=== PATIENT | female | born 1935 | race Caucasian/White ===

== ENCOUNTER 2020-06-26 07:48 | Outpatient (CLI) | payer MEDICARE, SELFPAY ==
[2020-06-26 08:38] LABS: Anion Gap 10.6 (5-19); Blood Urea Nitrogen 45 mg/dL (8-23); Calcium 7.9 mg/dL (8.5-10.5); Carbon Dioxide 39 mmol/L (22-29); Chloride 96 mmol/L (98-107); Glucose 89 mg/dL (65-115); Osmolality Calculated 293 mOsm/kg (285-295); Sodium 143 mmol/L (136-145)
[2020-06-26 09:00] LABS: Potassium 2.6 mmol/L (3.5-5.1)
== END 2020-06-26 07:49 | disposition home or self-care (01) ==
LOC: LAB 07:51
PROVIDERS: Visit Provider Nurse Practitioner Family
DX: E87.6 Hypokalemia (principal)
CPT/HCPCS: 80048

== ENCOUNTER 2020-06-27 08:51 | Outpatient (CLI) | payer MEDICARE, SELFPAY ==
[2020-06-27 09:41] LABS: Anion Gap 11.9 (5-19); Blood Urea Nitrogen 46 mg/dL (8-23); Calcium 8.7 mg/dL (8.5-10.5); Carbon Dioxide 35 mmol/L (22-29); Chloride 98 mmol/L (98-107); Glucose 133 mg/dL (65-115); Osmolality Calculated 294 mOsm/kg (285-295); Sodium 142 mmol/L (136-145)
[2020-06-27 09:55] LABS: Potassium 2.9 mmol/L (3.5-5.1)
== END 2020-06-27 08:52 | disposition home or self-care (01) ==
PROVIDERS: Visit Provider Nurse Practitioner Family
DX: E87.6 Hypokalemia (principal)
CPT/HCPCS: 80048

== ENCOUNTER 2020-09-06 15:19 | Inpatient (IN) | payer MEDICARE, SELFPAY ==
[2020-09-06] VITALS (46 sets, daily range): BP systolic 152–219; BP diastolic 66–152; PULSE 74–89; RESP 22–36; TEMP 36.4; O2SAT 91–94; BMI 28.4
--- NOTE | 2020-09-06 15:26 | XRR_ITS ---
PROCEDURE INFORMATION: Exam: XR Chest, 1 View Exam date and time: 09/06/2020 3:39 PM Age: 84 years old Clinical indication: Shortness of breath; Additional info: SOB TECHNIQUE: Imaging protocol: XR of the chest Views: 1 view. COMPARISON: CR XR chest 1V portable [id number] 06/29/2020 2:04 AM FINDINGS: Lungs: Bilateral hilar vascular congestion appearing decreased since prior examination. Pleural space: Bilateral lower lobe pleural effusion. No pneumothorax. Heart/Mediastinum: Unremarkable. No cardiomegaly. Bones/joints: Unremarkable. XR/XR chest 1V portable [id number] IMPRESSION: 1. Bilateral hilar pulmonary edema decreased since prior examination. 2. Bilateral lower lobe pleural effusions similar to prior examination. 3. Otherwise negative examination
--- NOTE | 2020-09-06 15:28 | ED_ITS ---
HPI - SOB/Dyspnea General: Chief Complaint: Shortness of Breath/Dyspnea Stated Complaint: DIFF BREATHING Time Seen by Provider: 09/06/20 15:20 Source: patient and EMS Mode of arrival: EMS Limitations: no limitations History of Present Illness: HPI Narrative: 84-year-old female who tested positive for Covid 4 days ago. Patient was sent here from the longterm as she has been having increasing shortness of breath. Patient is on oxygen there for CHF. They states she has been requiring more oxygen and is currently on 6 L. She is at increased wheezing as well. She is had low-grade fevers. She denies any worsening improving factors. She has had a slight cough. Associated symptoms: Deny abdominal pain, chest pain, fever(s), nausea or vomiting Review of Systems Const: Denies: fever(s), chills, body aches or change in appetite Eyes: Denies: blurry vision or eye discomfort ENMT: Denies: throat pain or dental pain Card: Denies: chest pain Resp: Reports: dyspnea and wheezing GI: Denies: abdominal pain, nausea, vomiting or diarrhea : Denies: dysuria Musc: Denies: neck pain or back pain Skin/Breast: Denies: rash Neuro: Denies: headache(s) Psych: Denies: depression Marquez/Lymph: Denies: easy bruising All/Imm: Denies: urticaria PFSH ED PFSH: Medical History CKD (chronic kidney disease) Dyslipidemia Falls frequently HTN (hypertension) Left hip postoperative wound infection PRES (posterior reversible encephalopathy syndrome) Mental status significantly improved. Thought to be secondary to elevated blood pressure chronically. Seizure disorder On Keppra, no recurrent seizures Staph infection Surgical History H/O lumbosacral spine surgery History of hip surgery History of right hip replacement Family History Other CAD (coronary artery disease) Social History Smoking and tobacco status: never smoked Alcohol intake: never Caregiver/support person: Yes (neighbour) Lives independently: Yes Household members: none Housing: House Marital status: / Physical Exam Const: COMMON NORMALS: patient oriented x3 GENERAL APPEARANCE: in distress HENMT: COMMON NORMALS: normocephalic and atraumatic HEAD & SCALP: normocephalic and atraumatic Eye: COMMON NORMALS: Equal, round and reactive pupils present and EOMs intact bilaterally PUPIL: Yes Equal, round and reactive pupils present Neck/C-Spine: COMMON NORMALS: full ROM and supple Chest: COMMONS NORMALS: normal inspection of the chest and normal palpation of entire chest wall Resp: COMMON NORMALS: No retractions and No use of accessory muscles EFFORT & INSPECTION: Yes tachypneic AUSCULTATION: wheezes Cardio: COMMON NORMALS: regular rate, regular rhythm and No murmurs present (C ardio) RATE: regular rate RHYTHM: regular rhythm GI: COMMON NORMALS: Normal to inspection, nondistended, normoactive bowel sounds present, Soft to palpation, non-tender and no masses PALPATION: Yes Soft to palpation Extremity: COMMON NORMALS: normal to inspection and full ROM Neuro: COMMON NORMALS: patient oriented x3, moves all extremities and no focal motor deficits Psych: COMMON NORMALS: mental status grossly normal, Normal thought process present and cooperative THOUGHT PROCESS: Normal thought process present Skin: COMMON NORMALS: no rashes or lesions noted and no wounds GENERAL SKIN EXAM: no rashes or lesions noted Course Vital Signs: Vital signs: Vital Signs Temperature 97.6 F 09/06/20 15:23 Pulse Rate 89 09/06/20 16:00 Respiratory Rate 22 H 09/06/20 16:00 Blood Pressure 180/90 09/06/20 15:23 Pulse Oximetry 94 09/06/20 16:00 MDM - SOB/Dyspnea MDM Narrative: Medical decision making narrative: Patient presents here with the does have Covid. Patient also has congestive heart failure does appear to have pleural effusions likely related to her heart failure. I did give patient Lasix here. She does have slight hyperkalemia I gave her insulin and D50 as well. I spoke to Dr. Otto of the hospital service who will see patient admit to the viral ICU. Lab Data: Labs: Lab Results 09/06/20 09/06/20 09/06/20 Range/Units 15:50 15:50 15:50 WBC 6.9 (4.0-10.0) 10^3/ uL RBC 2.99 L (4.1-5.3) 10^6/u L Hgb 9.1 L (11.5-15.3) g/dL Hct 31.3 L (37.0-47.0) % MCV 104.7 H (81-99) fL MCH 30.4 (28.0-34.0) pg MCHC 29.1 L (30.0-36.0) g/dL RDW 13.5 (12.1-15.1) % Plt Count 236 (130-400) 10^3/c mm MPV 11.1 H (7.4-10.4) fL Neut % (Auto) 80.1 % Lymph % (Auto) 13.1 % Winkler % (Auto) 5.6 % Eos % (Auto) 0.3 % Baso % (Auto) 0.3 % Neut # (Auto) 5.56 (1.8-7.7) 10^3/u L Lymph # (Auto) 0.9 (0.8-4.8) 10^3/u L Winkler # (Auto) 0.4 (0.2-0.9) 10^3/u L Eos # (Auto) 0.0 (0.0-0.8) 10^3/u L Baso # (Auto) 0.0 (0.0-0.1) 10^3/u L Nucleated RBC % (a uto) 0 % Nucleated RBCs # 0.0 /100WBC PT 11.50 L (12.1-14.9) SECO NDS INR 0.82 (0.8-1.2) Fibrinogen 526 H (174-498) mg/dL Specimen Type Arterial Sample Site Radial, right ABG pH 7.39 (7.35-7.45) ABG pCO2 53.2 H (35-45) mmHg ABG pO2 71.4 L (80.0-100.0) mmH g ABG HCO3 32.5 H (22-26) mmol/L ABG Base Excess 6.3 H (-2.0-2.0) mmol/ L Maurilio Test Pos Hematocrit 37.9 (37-47) % O2 Delivery Device Nc O2 Liters/Min 4.5 % Apparel Machinery Instructor ID jmn Sodium (136-145) mmol/L Potassium (3.5-5.1) mmol/L Chloride (98-107) mmol/L Carbon Dioxide (22-29) mmol/L Anion Gap (5-19) BUN (8-23) mg/dL Creatinine (0.5-0.9) mg/dL GFR Calculation Glucose (65-115) mg/dL Calculated Osmolal ity (285-295) mOsm/k g Lactic Acid (0.5-2.2) mmol/L Calcium (8.5-10.5) mg/dL Ferritin (15-150) ng/mL Total Bilirubin (0.15-1.2) mg/dL AST (0-32) U/L ALT (0-33) U/L Alkaline Phosphata se (35-105) IU/L C-Reactive Protein (0.0-4.9) mg/L NT-Pro-B Natriuret Pep (0-450) pg/mL Total Protein (6.6-8.7) g/dL Albumin (3.5-5.2) g/dL Globulin (1.3-4.6) g/dL 09/06/20 09/06/20 Range/Units 15:50 15:50 WBC (4.0-10.0) 10^3/ uL RBC (4.1-5.3) 10^6/u L Hgb (11.5-15.3) g/dL Hct (37.0-47.0) % MCV (81-99) fL MCH (28.0-34.0) pg MCHC (30.0-36.0) g/dL RDW (12.1-15.1) % Plt Count (130-400) 10^3/c mm MPV (7.4-10.4) fL Neut % (Auto) % Lymph % (Auto) % Winkler % (Auto) % Eos % (Auto) % Baso % (Auto) % Neut # (Auto) (1.8-7.7) 10^3/u L Lymph # (Auto) (0.8-4.8) 10^3/u L Winkler # (Auto) (0.2-0.9) 10^3/u L Eos # (Auto) (0.0-0.8) 10^3/u L Baso # (Auto) (0.0-0.1) 10^3/u L Nucleated RBC % (a uto) % Nucleated RBCs # /100WBC PT (12.1-14.9) SECO NDS INR (0.8-1.2) Fibrinogen (174-498) mg/dL Specimen Type Sample Site ABG pH (7.35-7.45) ABG pCO2 (35-45) mmHg ABG pO2 (80.0-100.0) mmH g ABG HCO3 (22-26) mmol/L ABG Base Excess (-2.0-2.0) mmol/ L Maurilio Test Hematocrit (37-47) % O2 Delivery Device O2 Liters/Min % Apparel Machinery Instructor ID Sodium 143 (136-145) mmol/L Potassium 5.9 H (3.5-5.1) mmol/L Chloride 104 (98-107) mmol/L Carbon Dioxide 31 H (22-29) mmol/L Anion Gap 13.9 (5-19) BUN 43 H (8-23) mg/dL Creatinine 3.1 H (0.5-0.9) mg/dL GFR Calculation Not Reportable Glucose 105 (65-115) mg/dL Calculated Osmolal ity 307 H (285-295) mOsm/k g Lactic Acid 0.8 (0.5-2.2) mmol/L Calcium 8.1 L (8.5-10.5) mg/dL Ferritin 1343 H (15-150) ng/mL Total Bilirubin 0.2 (0.15-1.2) mg/dL AST 32 (0-32) U/L ALT 14 (0-33) U/L Alkaline Phosphata se 107 H (35-105) IU/L C-Reactive Protein 33.1 H (0.0-4.9) mg/L NT-Pro-B Natriuret Pep [id number] H (0-450) pg/mL Total Protein 5.0 L (6.6-8.7) g/dL Albumin 2.4 L (3.5-5.2) g/dL Globulin 2.6 (1.3-4.6) g/dL Imaging Data^: CXR: Radiologist's impression: [address] [place] [address] XRay Report Signed Patient: Thu George Unit #: [id number] : 1935 Age/Sex: 84 / F ADM Date: 09/06/20 Loc: ER Room/Bed: Attending Dr: Ordering Provider/Ordering MD: Lefty Lyles MD Date of Service: 09/06/20 Procedure(s): XR chest 1V portable [id number] Accession Number(s): [id number] Report Number: [id number] PROCEDURE INFORMATION: Exam: XR Chest, 1 View Exam date and time: 09/06/2020 3:39 PM Age: 84 years old Clinical indication: Shortness of breath; Additional info: SOB TECHNIQUE: Imaging protocol: XR of the chest Views: 1 view. COMPARISON: CR XR chest 1V portable [id number] 06/29/2020 2:04 AM FINDINGS: Lungs: Bilateral hilar vascular congestion appearing decreased since prior examination. Pleural space: Bilateral lower lobe pleural effusion. No pneumothorax. Heart/Mediastinum: Unremarkable. No cardiomegaly. Bones/joints: Unremarkable. XR/XR chest 1V portable [id number] IMPRESSION: 1. Bilateral hilar pulmonary edema decreased since prior examination. 2. Bilateral lower lobe pleural effusions similar to prior examination. 3. Otherwise negative examination Discharge Plan Discharge Patient Disposition: Admitted As Inpatient Clinical Impression: Pneumonia due to 2018-V CHF (congestive heart failure) Qualifiers: Heart failure type: unspecified Heart failure chronicity: acute on chronic Qualified Code(s): I50.9 - Heart failure, unspecified Condition: Stable Referrals: Jimenez Remy [Primary Care Provider] - Coding Level of Care Code ED Application Integrator for Chg Fwd Exam Comprehensive
[2020-09-06 16:03] LABS: ABG PCO2 53.2 mmHg (35-45); ABG PH Result 7.39 (7.35-7.45); Arterial Blood Gas Hematocrit 37.9 % (37-47); Base Excess ABG 6.3 mmol/L (-2.0-2.0); Blood Gas Allen Test Pos; Blood Gas LPM 4.5 %; Blood Gas Sample Site Radial, right; Blood Gas Sample Type Arterial; HCO3 ABG 32.5 mmol/L (22-26); Oxygen Device NC; PO2 ABG 71.4 mmHg (80.0-100.0)
[2020-09-06] MEDS: FUROsemide 10 mg/mL SDV 10mL 60 MG IVP (16:18)
[2020-09-06] MEDS: dexamethasone 4 mg/mL INJ 10 MG IVP (16:18)
[2020-09-06 16:19] LABS: Basophils % 0.3 %; Eosinophils % 0.3 %; Hematocrit 31.3 % (37.0-47.0); Hemoglobin 9.1 g/dL (11.5-15.3); Lymphocytes # 0.9 10^3/uL (0.8-4.8); Lymphocytes % 13.1 %; Mean Corpuscular HGB Conc 29.1 g/dL (30.0-36.0); Mean Corpuscular Hemoglobin 30.4 pg (28.0-34.0); Mean Corpuscular Volume 104.7 fL (81-99); Mean Platelet Volume 11.1 fL (7.4-10.4); Monocytes # 0.4 10^3/uL (0.2-0.9); Monocytes % 5.6 %; Neutrophils # 5.56 10^3/uL (1.8-7.7); Neutrophils % 80.1 %; Nucleated Red Blood Cells % 0 %; Platelet Count 236 10^3/cmm (130-400); Red Blood Count 2.99 10^6/uL (4.1-5.3); Red Cell Distribution Width 13.5 % (12.1-15.1); White Blood Count 6.9 10^3/uL (4.0-10.0)
[2020-09-06 16:39] LABS: Fibrinogen 526 mg/dL (174-498); INR 0.82 (0.8-1.2)
[2020-09-06 16:44] LABS: Lactic Sepsis W/Reflex 0.8 mmol/L (0.5-2.2)
[2020-09-06 16:52] LABS: Alanine Aminotransferase 14 U/L (0-33); Albumin Level 2.4 g/dL (3.5-5.2); Alkaline Phosphatase 107 IU/L (35-105); Anion Gap 13.9 (5-19); Aspartate Amino Transferase 32 U/L (0-32); Blood Urea Nitrogen 43 mg/dL (8-23); C Reactive Protein 33.1 mg/L (0.0-4.9); Calcium 8.1 mg/dL (8.5-10.5); Carbon Dioxide 31 mmol/L (22-29); Chloride 104 mmol/L (98-107); Globulin 2.6 g/dL (1.3-4.6); Glucose 105 mg/dL (65-115); NT Pro B Type Natriuretic Pept 14401 pg/mL (0-450); Osmolality Calculated 307 mOsm/kg (285-295); Potassium 5.9 mmol/L (3.5-5.1); Sodium 143 mmol/L (136-145); Total Bilirubin 0.2 mg/dL (0.15-1.2)
[2020-09-06 17:25] LABS: Ferritin 1343 ng/mL (15-150)
--- NOTE | 2020-09-06 17:43 | PM.HP ---
Providers/Chief Complaint Primary Care Provider: Jimenez Remy Chief Complaint: DIFF BREATHING History of Present Illness Thu George is a 84 year old female resident of [facility] who was diagnosed with Covid on the who presents to the hospital with increasing shortness of breath and oxygen requirement. She is very hard of hearing. No fever. Some nasal congestion, cough that is nonprodcutive. No vomiting, diarrhea. Relatively asymptomatic. Recently on Bactrim for abscess under left arm. No chest pain. She has received a dose of Lasix in the emergency department as well as a dose of dexamethasone. Also received insulin and glucose for hyperkalemia. Previous hospitalization included an extended stay for diastolic heart failure, pleural effusions, and concern of aspiration pneumonitis. Review of Systems General: Reports: ROS unobtainable due to mental status (Patient with significant confusion preventing adequate ROS.) Medications/Allergies Home Medications Medication Instructions Recorded Confirmed Last Taken Type cholecalciferol (vitamin D3) 1,250 mcg PO Q7D 05/06/20 07/13/20 Unknown History lovastatin 20 mg PO DAILY 05/06/20 07/13/20 Unknown History hydralazine 50 mg PO TID #90 tab 05/13/20 07/13/20 Unknown Rx ipratropium-albuterol 3 ml INHALATION TID #180 ml 05/13/20 07/13/20 Unknown Rx levetiracetam 500 mg PO BID #60 tab 05/13/20 07/13/20 Unknown Rx pantoprazole 40 mg PO DAILY #30 tab 05/13/20 07/13/20 Unknown Rx Milk of Magnesia 30 ml PO DAILY PRN 05/29/20 07/13/20 Unknown History Pro-Stat AWC 15 ea PO BID 05/29/20 07/13/20 Unknown History Tylenol 650 mg PO QID PRN 05/29/20 07/13/20 Unknown History budesonide 0.5 mg INHALATION BID 05/29/20 07/13/20 Unknown History loperamide 2 mg PO Q2H PRN 05/29/20 07/13/20 Unknown History albuterol sulfate 90 mcg/actuation 2 inh INHALATION Q2H PRN each 07/13/20 07/13/20 Unknown History breath activated powder inhaler furosemide 40 mg tablet 40 mg PO BID tab 07/13/20 Unknown History levothyroxine 25 mcg capsule 25 mcg PO DAILY 07/13/20 07/13/20 Unknown History potassium chloride 20 mEq 20 meq PO BID 07/13/20 07/13/20 Unknown History tablet,extended release budesonide 2 spray INTRANASAL BID 09/06/20 09/06/20 09/06/20 History carbamide peroxide [Debrox] 5 drp OTIC (EAR) DAILY 09/06/20 09/06/20 08/26/20 History carboxymethylcellulose sodium 2 drp OPHTHALMIC (EYE) BID 09/06/20 09/06/20 08/29/20 History [Refresh Tears] diclofenac sodium 2 g TOPICAL TID PRN 09/06/20 09/06/20 Unknown History hydrocodone-acetaminophen 1 tab PO Q4H PRN 09/06/20 09/06/20 09/05/20 History ipratropium-albuterol [Combivent 1 puff INHALATION TID 09/06/20 09/06/20 09/06/20 History Respimat] metolazone 2.5 mg PO DAILY 09/06/20 09/06/20 09/06/20 History metoprolol tartrate 12.5 mg PO BID 09/06/20 09/06/20 09/06/20 History polyethylene glycol 3350 [Miralax] 17 g PO DAILY PRN 09/06/20 09/06/20 Unknown History sennosides-docusate sodium 1 tab-cap PO BID PRN 09/06/20 09/06/20 Unknown History [Senna-S] sulfamethoxazole-trimethoprim 1 tab PO BID 09/06/20 09/06/20 09/06/20 History [Bactrim DS] Allergies Allergy/AdvReac Type Severity Reaction Status Date / Time No Known Allergies Allergy Verified 05/07/20 13:38 PFSH Acute PFSH: Medical History (Updated 09/06/20 @ 17:57 by Paul Otto MD) Anemia CHF (congestive heart failure) CKD (chronic kidney disease) Dyslipidemia Falls frequently HTN (hypertension) Left hip postoperative wound infection PRES (posterior reversible encephalopathy syndrome) Mental status significantly improved. Thought to be secondary to elevated blood pressure chronically. Seizure disorder On Keppra, no recurrent seizures Staph infection Surgical History H/O lumbosacral spine surgery History of hip surgery History of right hip replacement Family History Other CAD (coronary artery disease) Social History Smoking and tobacco status: never smoked Alcohol intake: never Caregiver/support person: Yes (neighbour) Lives independently: Yes Household members: none Housing: House Marital status: / Vitals/I&O/Wt Last Vital Signs Temp 97.6 F 09/06/20 15:23 Pulse 89 09/06/20 16:00 Resp 22 H 09/06/20 16:00 BP 180/90 09/06/20 15:23 Pulse Ox 94 09/06/20 16:00 Weight last 48 hrs Weight 72.91 kg Physical Exam Narrative: EXAM NARRATIVE: General exam is a well confused white female, very hard of hearing, who can only answer a few questions. She is obviously dyspneic. HEENT: Pupils equally round. Arcus senilis present. Oropharynx clear. Neck is supple no lymphadenopathy or thyromegaly Cardiovascular regular rate and rhythm, heart sounds distant Lungs bilateral expiratory wheezes, coarse breath sounds bilaterally Abdomen is soft nontender with positive bowel sounds. Obese. was deferred Extremities 1+ edema bilaterally, cap refill brisk Skin no rash Neuro no obvious focal deficits. Urinary Catheter Management^: Yap: Cath Placed During This Visit: no Reason for Continuing Indwelling Catheter: Other Data : 09/06/20 15:50 09/06/20 15:50 Micro: Microbiology 09/06/20 16:00 Blood Culture - Preliminary Blood SPECIMEN COLLECTED 09/06/20 15:50 Blood Culture - Preliminary Blood SPECIMEN COLLECTED Other data: Dimer is pending pH 7.39, PCO2 53, PO2 71 Lactate 0.8 Calcium 8.1 Ferritin 1300 LFTs mainly within normal limits Troponin not checked BNP 1400 CRP 33 Chest x-ray with bilateral effusions, bilateral infiltrates A&P Assessment and plan (1) Pneumonia due to 2019-nCoV: Dexamethasone 6 mg IV every 24 hours Remdesivir Albuterol, Atrovent per metered-dose inhaler every 4 to 6 hours as needed Supportive care with oxygen Zosyn and linezolid secondary to concern of superimposed pneumonia. This would also cover any concern of abscess in the axilla Status: Acute (2) CHF (congestive heart failure): Lasix 60 mg IV every 12 hours Status: Acute Qualifiers: Heart failure type: unspecified Heart failure chronicity: acute on chronic Qualified Code(s): I50.9 - Heart failure, unspecified (3) Anemia: Check stool Hemoccult Repeat hemoglobin tomorrow Status: Inactive Qualifiers: Anemia type: unspecified type Qualified Code(s): D64.9 - Anemia, unspecified (4) CKD (chronic kidney disease): Close follow-up of renal function Has acute kidney injury superimposed on chronic kidney disease, of which illness as well as Bactrim may have been a factor Hold any renal toxic medications Status: Acute Qualifiers: Chronic kidney disease stage: stage 4 (severe) Qualified Code(s): N18.4 - Chronic kidney disease, stage 4 (severe) (5) Hyperkalemia: Received Lasix in the emergency department Repeat BMP in 4 hours Status: Acute (6) Respiratory failure: See notations under COVID-19 pneumonia Status: Acute Qualifiers: Chronicity: unspecified Respiratory failure complication: hypoxia Qualified Code(s): J96.91 - Respiratory failure, unspecified with hypoxia Additional A&P Information Bilateral leg edema. Will check venous duplex. Recent abscess under right arm, no evidence of cellulitis currently. History of anemia. Check stool Hemoccult History of hypertension History of seizure disorder, continue Keppra Hypothyroidism, continue levothyroxine Allow natural per nursing facility records Heparin for DVT prophylaxis Check urinalysis Attestations Medical Necessity Statement*: Will need greater than 2 midnight stay secondary to COVID-19 pneumonia Time Spent in Patient Care: Greater than 35 minutes Coding Level of Care Code Acute Tube Test Technician for [facility] Fwd Diagnoses Pneumonia due to 2019-nCoV U07.1; J12.89 CHF (congestive heart failure) I50.9 Heart failure type: unspecified Heart failure chronicity: acute on chronic Anemia D64.9 Anemia type: unspecified type CKD (chronic kidney disease) N18.4 Chronic kidney disease stage: stage 4 (severe) Hyperkalemia E87.5 Respiratory failure J96.91 Chronicity: unspecified Respiratory failure complication: hypoxia
[2020-09-06 18:06] LABS: D Dimer 3.14 ug/mIFEU (0-0.59)
[2020-09-06 21:14] LABS: Glucose Point of Care 104 mg/dL (70-110)
[2020-09-06] MEDS: dextrose 50% syringe 50 mL IVP (21:32)
[2020-09-06] MEDS: hyDRALAzine 50 mg Tablet PO (21:33)
[2020-09-06] MEDS: linezolid premix 600 MG/300 ML PREMIX 300 MG IV (21:33)
[2020-09-06] MEDS: insulin regular-human 100 units/1 mL 10 UNIT IVP (21:33)
[2020-09-06] MEDS: heparin 5,000 unit/mL INJ 1 mL 5000 UNIT SUBCUT (21:51)
[2020-09-06] MEDS: hyDRALAzine 20 mg/mL INJ 1 mL IVP (21:52)
[2020-09-06] MEDS: piperacillin-tazobactam 3.375 GM in sodium chloride 0.9% (plus) 50 ML IV (22:48)
--- NOTE | 2020-09-06 23:00 | PC.NURSE ---
Notified Dr. Prasad of patient's elevated blood pressure, 219/94. Other vital signs unremarkable. Per Dr. Prasad, hold evening dose of PO hydralazine, and give hydralazine 20mg IVP x 1 now.
[2020-09-06 23:05] LABS: Bilirubin Urine Neg (Negative); Blood Urine 2+ (Negative); Glucose Urine UA 1+ (Normal); Ketones Urine 1+ (Negative); Leukocyte Esterase Urine Negative (Negative); Nitrate Urine Negative (Negative); Protein Urine 3+ (Negative); Specific Gravity, Urine 1.005 (1.005-1.030); Urine Appearance Clear (CLEAR); Urine Color Yellow (Yellow); Urobilinogen Urine Norm (Negative); pH Urine 7 (5-7)
[2020-09-06 23:06] LABS: Add Urine Culture? No; Bacteria Urine TRACE /hpf; RBC Urine 0-4 /hpf (0-2); Squamous Epithelial Cell Urine 0-4 /hpf (0-5); WBC Urine 0-4 /hpf (0-5)
[2020-09-06 23:43] LABS: Anion Gap 17.5 (5-19); Blood Urea Nitrogen 44 mg/dL (8-23); Carbon Dioxide 28 mmol/L (22-29); Chloride 103 mmol/L (98-107); Glucose 190 mg/dL (65-115); Osmolality Calculated 312 mOsm/kg (285-295); Potassium 5.5 mmol/L (3.5-5.1); Sodium 143 mmol/L (136-145)
[2020-09-07] VITALS (216 sets, daily range): BP systolic 140–203; BP diastolic 55–130; PULSE 64–99; RESP 16–43; TEMP 36.3–36.9; O2SAT 87–100
[2020-09-07] MEDS: HYDROcodone-acetaminophen 5-325 mg Tablet 1 TAB PO ×3 (00:01→22:46)
[2020-09-07] MEDS: FUROsemide 10 mg/mL SDV 10mL 60 MG IVP ×2 (04:07→17:39)
[2020-09-07] MEDS: hyDRALAzine 50 mg Tablet PO ×3 (06:15→20:21)
--- NOTE | 2020-09-07 06:22 | PC.NURSE ---
Notified Dr. Prasad of patients elevated blood pressure. Order received for hydralazine 20mg IV x 1, and to give 0900 hydralazine 50mg po now.
[2020-09-07 06:45] LABS: Glucose Point of Care 112 mg/dL (70-110)
[2020-09-07 07:00] LABS: Alanine Aminotransferase 15 U/L (0-33); Albumin Level 2.1 g/dL (3.5-5.2); Alkaline Phosphatase 97 IU/L (35-105); Anion Gap 17.7 (5-19); Aspartate Amino Transferase 29 U/L (0-32); Blood Urea Nitrogen 43 mg/dL (8-23); Calcium 8.2 mg/dL (8.5-10.5); Carbon Dioxide 28 mmol/L (22-29); Chloride 105 mmol/L (98-107); Globulin 2.6 g/dL (1.3-4.6); Glucose 114 mg/dL (65-115); Magnesium 2.2 mg/dL (1.7-2.3); Osmolality Calculated 312 mOsm/kg (285-295); Potassium 5.7 mmol/L (3.5-5.1); Sodium 145 mmol/L (136-145); Total Bilirubin 0.2 mg/dL (0.15-1.2); Total Protein 4.7 g/dL (6.6-8.7)
--- NOTE | 2020-09-07 07:00 | USCV_ITS ---
Thu George Age: 84 Gender: F : 1935 Exam Date: 09/07/2020 06:24 Ordering Phys: Paul Otto MD Technologist: Robert Naranjo Exam Location: [facility] [place] [place]_ Indication: LEG EDEMA HISTORY: Lower extremity swelling. PROCEDURES: The venous duplex Doppler examination of both lower extremities was performed in the standard fashion. The following venous structures were evaluated: common femoral vein, profunda vein, proximal portion of the greater saphenous vein, superficial femoral vein, and the popliteal vein. FINDINGS: The veins were found to be easily compressible with spontaneous blood flow. Non pulsatile flow pattern. CONCLUSIONS No evidence of DVT in the above-mentioned identifiable veins. Dr Lanny Reddy MD FACC (Electronically Signed) Final Date: 08 September 2020 08:20 S
[2020-09-07] MEDS: hyDRALAzine 20 mg/mL INJ 1 mL IVP (07:18)
[2020-09-07 07:31] LABS: Basophils % 0.2 %; Hematocrit 30.7 % (37.0-47.0); Hemoglobin 9.1 g/dL (11.5-15.3); Lymphocytes # 0.7 10^3/uL (0.8-4.8); Mean Corpuscular HGB Conc 29.6 g/dL (30.0-36.0); Mean Corpuscular Hemoglobin 30.6 pg (28.0-34.0); Mean Corpuscular Volume 103.4 fL (81-99); Mean Platelet Volume 11.4 fL (7.4-10.4); Monocytes # 0.1 10^3/uL (0.2-0.9); Monocytes % 2.2 %; Neutrophils # 3.68 10^3/uL (1.8-7.7); Neutrophils % 80.9 %; Nucleated Red Blood Cells % 0 %; Platelet Count 239 10^3/cmm (130-400); Red Blood Count 2.97 10^6/uL (4.1-5.3); Red Cell Distribution Width 13.5 % (12.1-15.1); White Blood Count 4.6 10^3/uL (4.0-10.0)
[2020-09-07] MEDS: pantoprazole DR 40 mg Tablet PO (08:16)
[2020-09-07] MEDS: atorvastatin 40 mg Tablet 20 MG PO (08:17)
[2020-09-07] MEDS: levothyroxine 25 mcg Tablet PO (08:17)
[2020-09-07] MEDS: levETIRAcetam 500 mg Tablet PO ×2 (08:17→17:11)
[2020-09-07] MEDS: metoprolol tartrate 25 mg Tablet 12.5 MG PO ×2 (08:17→17:11)
[2020-09-07] MEDS: linezolid premix 600 MG/300 ML PREMIX 300 MG IV ×2 (08:18→20:21)
[2020-09-07] MEDS: heparin 5,000 unit/mL INJ 1 mL 5000 UNIT SUBCUT ×2 (08:18→20:22)
[2020-09-07] MEDS: hyDRALAzine 20 mg/mL INJ 1 mL 10 MG IVP (09:40)
[2020-09-07] MEDS: piperacillin-tazobactam 3.375 GM in sodium chloride 0.9% (plus) 50 ML IV ×2 (10:44→22:19)
[2020-09-07] MEDS: dexamethasone 4 mg/mL INJ 6 MG IVP (11:04)
[2020-09-07] MEDS: amlodipine 10 mg Tablet PO (11:04)
[2020-09-07 11:17] LABS: Glucose Point of Care 102 mg/dL (70-110)
--- NOTE | 2020-09-07 12:06 | PM.PN ---
Subjective Subjective: Interval history: Patient is still requiring 5 L oxygen via nasal nasal cannula. Last ABG done on: 10:18: pH 7.39, PCO2: 53, PO2 71, FiO2: 30% Our plan today is to give her albumin as well as Lasix. Vitals and labs have been reviewed. Medications: Reviewed: Yes Vitals/I&O/Wt Last Vital Signs Temp 98.3 F 09/07/20 00:39 Pulse 72 09/07/20 10:55 Resp 29 H 09/07/20 10:55 BP 160/63 09/07/20 10:55 Pulse Ox 92 09/07/20 10:55 09/06/20 09/07/20 09/07/20 22:59 06:59 14:59 Intake Total 300 / 300 300 / 300 Output Total 200 / 200 150 / 150 Balance 300 / 300 -200 / 100 150 / 150 Weight last 48 hrs Weight 86.636 kg Weight 72.91 kg Physical Exam Narrative: EXAM NARRATIVE: General exam is a well confused white female, very hard of hearing, HENMT: COMMON NORMALS: normocephalic, atraumatic, hearing grossly normal bilaterally and external ears normal HEAD & SCALP: normocephalic and atraumatic EXTERNAL EAR: Yes external ears normal Eye: COMMON NORMALS: no scleral icterus GENERAL EYE: appearance normal, both eyes and all related structures Chest: COMMONS NORMALS: normal inspection of the chest and normal palpation of entire chest wall CHEST: Yes Symmetrical chest wall rise Resp: COMMON NORMALS: normal respiratory effort OTHER: Coarse bilateral breath sounds. Bilateral basal crackle, expiratory wheeze. Cardio: COMMON NORMALS: regular rate, regular rhythm, S1 normal heart sound present, S2 normal heart sound present, No gallops present (Cardio), No murmurs present (Cardio), No rub (Cardio) and Peripheral pulses 2+ throughout RATE: regular rate RHYTHM: regular rhythm HEART SOUNDS: S1 normal heart sound present and S2 normal heart sound present PERIPHERAL PULSES: Peripheral pulses 2+ throughout GI: COMMON NORMALS: Normal to inspection, nondistended, normoactive bowel sounds present, Soft to palpation, non-tender, No hepatosplenomegaly present and no masses AUSCULTATION: Yes normoactive bowel sounds PALPATION: Yes Soft to palpation and Yes No hepatosplenomegaly present RECTAL EXAM: deferred Extremity: NARRATIVE EXTREMITY EXAM: 1+ bilateral pitting edema. Urinary Catheter Management^: Yap: Cath Placed During This Visit: yes Reason for Continuing Indwelling Catheter: Accurate Measurement of Urinary Output in Critically Ill Patients Urinary Catheter Date of Insertion: 09/06/20 Data : 09/08/20 04:35 09/08/20 04:35 Micro: Microbiology 09/06/20 16:00 Blood Culture - Preliminary Blood SPECIMEN COLLECTED 09/06/20 15:50 Blood Culture - Preliminary Blood SPECIMEN COLLECTED A&P Assessment and plan (1) Respiratory failure: Acute hypoxic respiratory failure secondary to Covid pneumonia/with superimposed possible bacterial pneumonia/decompensated heart failure with preserved ejection fraction. ABG done on: : pH 7.39, PCO2: 53, PO2 71, FiO2:40% Continue:Dexamethasone 6 mg IV every 24 hours, Remdesivir Continue Zyvox and Zosyn Continue Lasix 60 mg every 12h daily. Albumin today Status: Acute Qualifiers: Chronicity: unspecified Respiratory failure complication: hypoxia Qualified Code(s): J96.91 - Respiratory failure, unspecified with hypoxia (2) Pneumonia due to 2019-nCoV: Dexamethasone 6 mg IV every 24 hours Remdesivir Albuterol, Atrovent per metered-dose inhaler every 4 to 6 hours as needed Supportive care with oxygen Zosyn and linezolid secondary to concern of superimposed pneumonia. This would also cover any concern of abscess in the axilla Status: Acute (3) CHF (congestive heart failure): Lasix 60 mg IV every 12 hours Status: Acute Qualifiers: Heart failure chronicity: acute on chronic Heart failure type: unspecified Qualified Code(s): I50.9 - Heart failure, unspecified (4) Anemia: Check stool Hemoccult Repeat hemoglobin tomorrow Status: Inactive Qualifiers: Anemia type: unspecified type Qualified Code(s): D64.9 - Anemia, unspecified (5) CKD (chronic kidney disease): Close follow-up of renal function Has acute kidney injury superimposed on chronic kidney disease, of which illness as well as Bactrim may have been a factor Hold any renal toxic medications Status: Acute Qualifiers: Chronic kidney disease stage: stage 4 (severe) Qualified Code(s): N18.4 - Chronic kidney disease, stage 4 (severe) (6) Hyperkalemia: Current serum potassium is 5.7 Will continue to monitor serum potassium. We will do an EKG: We will give her Kayexalate today. Status: Acute Additional A&P Information Bilateral leg edema. Will check venous duplex. Recent abscess under right arm, no evidence of cellulitis currently. History of anemia. Check stool Hemoccult History of hypertension History of seizure disorder, continue Keppra Hypothyroidism, continue levothyroxine Allow natural per nursing facility records Heparin for DVT prophylaxis Check urinalysis Attestations Medical Necessity Statement*: Patient needs to be in hospital for the management of Covid pneumonia. Coding Level of Care Code Acute Rabies Inspector for g Fwd Exam Detailed Diagnoses Respiratory failure J96.91 Chronicity: unspecified Respiratory failure complication: hypoxia Pneumonia due to 2019-nCoV U07.1; J12.89 CHF (congestive heart failure) I50.9 Heart failure chronicity: acute on chronic Heart failure type: unspecified Anemia D64.9 Anemia type: unspecified type CKD (chronic kidney disease) N18.4 Chronic kidney disease stage: stage 4 (severe) Hyperkalemia E87.5
[2020-09-07] MEDS: sodium polystyrene sulfonate 15 gm/60 mL Btl PO (15:01)
[2020-09-07] MEDS: metOLazone 5 MG Tablet 2.5 MG PO (15:19)
[2020-09-07 17:20] LABS: Glucose Point of Care 124 mg/dL (70-110)
[2020-09-07 20:08] LABS: Glucose Point of Care 115 mg/dL (70-110)
[2020-09-08] VITALS (16 sets, daily range): BP systolic 107–173; BP diastolic 53–91; PULSE 58–78; RESP 18–24; TEMP 36.2–36.7; O2SAT 90–94
[2020-09-08] MEDS: acetaminophen 325 mg Tablet 650 MG PO (01:27)
[2020-09-08] MEDS: FUROsemide 10 mg/mL SDV 10mL 60 MG IVP (02:39)
[2020-09-08 05:56] LABS: Basophils % 0.1 %; Hematocrit 29.7 % (37.0-47.0); Hemoglobin 8.9 g/dL (11.5-15.3); Lymphocytes # 1.2 10^3/uL (0.8-4.8); Lymphocytes % 16.9 %; Mean Corpuscular Hemoglobin 30.8 pg (28.0-34.0); Mean Corpuscular Volume 102.8 fL (81-99); Monocytes # 0.4 10^3/uL (0.2-0.9); Monocytes % 6.1 %; Neutrophils % 76.2 %; Nucleated Red Blood Cells % 0 %; Platelet Count 272 10^3/cmm (130-400); Red Blood Count 2.89 10^6/uL (4.1-5.3); Red Cell Distribution Width 13.6 % (12.1-15.1); White Blood Count 7.2 10^3/uL (4.0-10.0)
[2020-09-08] MEDS: hyDRALAzine 20 mg/mL INJ 1 mL 10 MG IVP (05:56)
[2020-09-08 06:15] LABS: Alanine Aminotransferase 15 U/L (0-33); Albumin Level 2.3 g/dL (3.5-5.2); Alkaline Phosphatase 87 IU/L (35-105); Anion Gap 16.9 (5-19); Aspartate Amino Transferase 24 U/L (0-32); Blood Urea Nitrogen 51 mg/dL (8-23); Calcium 8.1 mg/dL (8.5-10.5); Carbon Dioxide 27 mmol/L (22-29); Chloride 101 mmol/L (98-107); Globulin 2.5 g/dL (1.3-4.6); Glucose 93 mg/dL (65-115); Osmolality Calculated 303 mOsm/kg (285-295); Potassium 4.9 mmol/L (3.5-5.1); Sodium 140 mmol/L (136-145); Total Bilirubin 0.2 mg/dL (0.15-1.2); Total Protein 4.8 g/dL (6.6-8.7)
[2020-09-08 07:12] LABS: Glucose Point of Care 86 mg/dL (70-110)
--- NOTE | 2020-09-08 07:38 | PC.NURSE ---
Addendum entered by Suzanne Wade RN 09/08/20 13:04: verbal order also received to hold po metalazone for today Original Note: Pt's creatnine more elevated today to , Dr. Mccollum notified who gave verbal order for 500mL bolus NS, order received to hold dose of lasix this afternoon due at 1530
--- NOTE | 2020-09-08 08:15 | XRR_ITS ---
PROCEDURE INFORMATION: Exam: XR Right Shoulder Exam date and time: 09/08/2020 11:32 AM Age: 84 years old Clinical indication: Pain; Shoulder; Right; Additional info: Right shoulder pain, covid + TECHNIQUE: Imaging protocol: XR Right shoulder. Views: 1 view. COMPARISON: No relevant prior studies available. FINDINGS: Bones/joints: There is a small metal anchor in the right humeral head which is probably from rotator cuff repair. No fracture or other acute abnormalities are seen. Prominent degenerative changes are present with joint space narrowing sclerosis and osteophyte formation. There is superior subluxation of the humeral head consistent with chronic rotator cuff degeneration. Soft tissues: Normal. XR/XR shoulder RT 1V [id number] IMPRESSION: 1. Prior orthopedic surgery probably rotator cuff repair. 2. Prominent degenerative disease.
[2020-09-08 08:35] LABS: ABG PCO2 41.7 mmHg (35-45); ABG PH Result 7.47 (7.35-7.45); Alveolar-Arterial Oxygen Gradi 18.5 mmHg (5-10); Arterial Blood Gas Hematocrit 30.4 % (37-47); Base Excess ABG 5.8 mmol/L (-2.0-2.0); Blood Gas Allen Test Pos; Blood Gas Operator Identificat CAK; Blood Gas Sample Site Radial, right; Blood Gas Sample Type Arterial; Carboxyhemoglobin 0.9 %THgb (0.4-20.1); HCO3 ABG 30.1 mmol/L (22-26); HGB O2 Sat 91.5 % (95-100); Ionized Calcium Level - ABG 1.1 mmol/L (1.1-1.4); Oxygen Device NC; Oxygen Saturation ABG 93.4; PO2 ABG 64.2 mmHg (80.0-100.0); Potassium Level - ABG 4.6 mmol/L (3.5-5.0); Total Hemoglobin 9.9 g/dL (12-16)
[2020-09-08] MEDS: heparin 5,000 unit/mL INJ 1 mL 5000 UNIT SUBCUT ×2 (09:28→21:31)
[2020-09-08] MEDS: atorvastatin 40 mg Tablet 20 MG PO (09:28)
[2020-09-08] MEDS: sodium chloride 0.9% 500 ML IV (09:28)
[2020-09-08] MEDS: amlodipine 10 mg Tablet PO (09:28)
[2020-09-08] MEDS: levETIRAcetam 500 mg Tablet PO ×2 (09:28→17:30)
[2020-09-08] MEDS: hyDRALAzine 50 mg Tablet PO ×3 (09:28→21:30)
[2020-09-08] MEDS: metoprolol tartrate 25 mg Tablet 12.5 MG PO ×2 (09:29→17:30)
[2020-09-08] MEDS: levothyroxine 25 mcg Tablet PO (09:29)
[2020-09-08] MEDS: pantoprazole DR 40 mg Tablet PO (09:29)
[2020-09-08] MEDS: HYDROcodone-acetaminophen 5-325 mg Tablet 1 TAB PO ×2 (10:03→17:31)
[2020-09-08] MEDS: benzonatate 100 mg Capsule PO ×2 (10:03→17:30)
[2020-09-08 11:32] LABS: Glucose Point of Care 82 mg/dL (70-110)
--- NOTE | 2020-09-08 13:05 | PC.NURSE ---
upon checking iv for patency before administering NS bolus this am, iv was hard to flush. with inspection it was noted that catheter tip was kinked not patent. iv was discontinued, multiple attempts by multiple RN's were unsuccessful, ultrasound was used and also unsuccessful. Dr. Mccollum notified of this and patient not having a patent IV at this point. no new orders received. Dr. Mccollum stated he would look and see what medications he could change to po for patient and he will also look for possible placement if EJ.
[2020-09-08] MEDS: amoxicillin-clav 500-125 mg Tablet 1 TAB PO ×2 (14:35→21:30)
[2020-09-08] MEDS: linezolid 600 mg Tablet PO ×2 (14:36→21:30)
--- NOTE | 2020-09-08 16:28 | P.PN_ITS ---
Subjective Subjective: Interval history: Patient shortness of breath has improved. Though she is still requiring 5 L oxygen via nasal cannula. She was complaining of right shoulder: X-ray right shoulder was done:There is superior subluxation of the humeral head consistent with chronic rotator cuff degeneration. No fracture. Medications: Reviewed: Yes Vitals/I&O/Wt Last Vital Signs Temp 98.1 F 09/08/20 16:00 Pulse 69 09/08/20 16:00 Resp 20 H 09/08/20 16:00 BP 107/74 09/08/20 16:00 Pulse Ox 90 09/08/20 16:00 09/08/20 09/08/20 09/08/20 06:59 14:59 22:59 Intake Total 50 / 1280 120 / 120 Output Total 200 / 775 300 / 300 Balance -150 / 505 120 / 120 -300 / -180 Weight last 48 hrs Weight 87.09 kg Weight 86.636 kg Physical Exam Narrative: EXAM NARRATIVE: General exam is a well confused white female, very hard of hearing, Const: COMMON NORMALS: patient oriented x3 HENMT: COMMON NORMALS: normocephalic, atraumatic, hearing grossly normal bilaterally and external ears normal HEAD & SCALP: normocephalic and atraumatic EXTERNAL EAR: Yes external ears normal Eye: COMMON NORMALS: no scleral icterus GENERAL EYE: appearance normal, both eyes and all related structures Chest: COMMONS NORMALS: normal inspection of the chest and normal palpation of entire chest wall CHEST: Yes Symmetrical chest wall rise Resp: COMMON NORMALS: normal respiratory effort, No retractions and No use of accessory muscles EFFORT & INSPECTION: Yes symmetric chest movement OTHER: Coarse bilateral breath sounds. Bilateral basal crackle, expiratory wheeze. Cardio: COMMON NORMALS: regular rate, regular rhythm, S1 normal heart sound present, S2 normal heart sound present, No gallops present (Cardio), No murmurs present (Cardio), No rub (Cardio) and Peripheral pulses 2+ throughout RATE: regular rate RHYTHM: regular rhythm HEART SOUNDS: S1 normal heart sound present and S2 normal heart sound present PERIPHERAL PULSES: Peripheral pulses 2+ throughout GI: COMMON NORMALS: Normal to inspection, nondistended, normoactive bowel sounds present, Soft to palpation, non-tender, No hepatosplenomegaly present and no masses AUSCULTATION: Yes normoactive bowel sounds PALPATION: Yes Soft to palpation and Yes No hepatosplenomegaly present RECTAL EXAM: deferred Extremity: NARRATIVE EXTREMITY EXAM: 1+ bilateral pitting edema Neuro: COMMON NORMALS: patient oriented x3 Urinary Catheter Management^: Yap: Cath Placed During This Visit: yes Reason for Continuing Indwelling Catheter: Acute Urinary Retention or Obstruction Urinary Catheter Date of Insertion: 09/06/20 Data : 09/08/20 04:35 09/08/20 04:35 Micro: Microbiology 09/06/20 16:00 Blood Culture - Preliminary Blood NEGATIVE TO DATE 09/06/20 15:50 Blood Culture - Preliminary Blood NEGATIVE TO DATE 09/07/20 04:00 MRSA Culture - Final Nose A&P Assessment and plan (1) Respiratory failure: Acute hypoxic respiratory failure secondary to Covid pneumonia/with superimposed possible bacterial pneumonia/decompensated heart failure with preserved ejection fraction. ABG done on: : pH 7.47, PCO2: 41, PO2 :64, FiO2:35% Continue:Dexamethasone 6 mg po every 24 hours, Remdesivir was held as she lost the IV line. She has received 2 doses so far. Continue Zyvox , Zosyn could not be given, no IV access. She has been started on Augmentin p.o. daily renally dosed Lasix on hold today due to worsening kidney function. We will continue to reevaluate her. Metolazone on hold. Status: Acute Qualifiers: Chronicity: unspecified Respiratory failure complication: hypoxia Qualified Code(s): J96.91 - Respiratory failure, unspecified with hypoxia (2) Pneumonia due to 2019-nCoV: Dexamethasone 6 mg po every 24 hours Remdesivir on hold Albuterol, Atrovent per metered-dose inhaler every 4 to 6 hours as needed Supportive care with oxygen linezolid and Augmentin secondary to concern of superimposed pneumonia. This would also cover any concern of abscess in the axilla. Status: Acute (3) CHF (congestive heart failure): Lasix 60 mg IV every 12 hours currently on hold due to worsening kidney function. Status: Acute Qualifiers: Heart failure type: unspecified Heart failure chronicity: acute on chronic Qualified Code(s): I50.9 - Heart failure, unspecified (4) Anemia: Check stool Hemoccult Monitor CBC. No need for transfusion now. Status: Inactive Qualifiers: Anemia type: unspecified type Qualified Code(s): D64.9 - Anemia, unspecified (5) CKD (chronic kidney disease): Close follow-up of renal function Has acute kidney injury superimposed on chronic kidney disease, Hold any renal toxic medications Status: Acute Qualifiers: Chronic kidney disease stage: stage 4 (severe) Qualified Code(s): N18.4 - Chronic kidney disease, stage 4 (severe) (6) Hyperkalemia: Current serum potassium is 4.9 Will continue to monitor serum potassium Status: Acute (7) Right shoulder pain: 2/2 to chronic superior subluxation of the humeral head consistent with chronic rotator cuff degeneration. No fracture. PT ,Pain control Status: Acute Additional A&P Information Bilateral leg edema. venous duplex: No evidence of DVT Recent abscess under right arm, no evidence of cellulitis currently. History of anemia. Check stool Hemoccult History of hypertension History of seizure disorder, continue Keppra Hypothyroidism, continue levothyroxine Allow natural per nursing facility records Heparin for DVT prophylaxis Check urinalysis Attestations Medical Necessity Statement*: Patient is to be in hospital for management of Covid pneumonia, as well as worsening kidney function. 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
[2020-09-08 16:44] LABS: Glucose Point of Care 94 mg/dL (70-110)
[2020-09-08 20:33] LABS: Glucose Point of Care 136 mg/dL (70-110)
[2020-09-09] VITALS (65 sets, daily range): BP systolic 89–153; BP diastolic 52–99; PULSE 56–79; RESP 16–36; TEMP 36.5–36.6; O2SAT 81–100
[2020-09-09] MEDS: HYDROcodone-acetaminophen 5-325 mg Tablet 1 TAB PO (04:57)
[2020-09-09 06:45] LABS: Basophils % 0.1 %; Eosinophils % 0.3 %; Hematocrit 29.6 % (37.0-47.0); Hemoglobin 8.8 g/dL (11.5-15.3); Lymphocytes # 1.9 10^3/uL (0.8-4.8); Lymphocytes % 21.3 %; Mean Corpuscular HGB Conc 29.7 g/dL (30.0-36.0); Mean Corpuscular Hemoglobin 30.8 pg (28.0-34.0); Mean Corpuscular Volume 103.5 fL (81-99); Mean Platelet Volume 11.1 fL (7.4-10.4); Monocytes # 0.5 10^3/uL (0.2-0.9); Monocytes % 5.4 %; Neutrophils # 6.32 10^3/uL (1.8-7.7); Neutrophils % 72.3 %; Nucleated Red Blood Cells % 0 %; Platelet Count 286 10^3/cmm (130-400); Red Blood Count 2.86 10^6/uL (4.1-5.3); Red Cell Distribution Width 13.6 % (12.1-15.1); White Blood Count 8.7 10^3/uL (4.0-10.0)
[2020-09-09 07:12] LABS: Alanine Aminotransferase 17 U/L (0-33); Albumin Level 2.3 g/dL (3.5-5.2); Alkaline Phosphatase 78 IU/L (35-105); Anion Gap 16.3 (5-19); Aspartate Amino Transferase 33 U/L (0-32); Blood Urea Nitrogen 54 mg/dL (8-23); Calcium 7.7 mg/dL (8.5-10.5); Carbon Dioxide 29 mmol/L (22-29); Chloride 101 mmol/L (98-107); Globulin 2.2 g/dL (1.3-4.6); Glucose 76 mg/dL (65-115); Osmolality Calculated 308 mOsm/kg (285-295); Potassium 4.3 mmol/L (3.5-5.1); Sodium 142 mmol/L (136-145); Total Bilirubin 0.2 mg/dL (0.15-1.2); Total Protein 4.5 g/dL (6.6-8.7)
[2020-09-09] MEDS: metoprolol tartrate 25 mg Tablet 12.5 MG PO ×2 (08:48→17:28)
[2020-09-09] MEDS: atorvastatin 40 mg Tablet 20 MG PO (08:48)
[2020-09-09] MEDS: heparin 5,000 unit/mL INJ 1 mL 5000 UNIT SUBCUT ×2 (08:48→21:40)
[2020-09-09] MEDS: amlodipine 10 mg Tablet PO (08:49)
[2020-09-09] MEDS: pantoprazole DR 40 mg Tablet PO (08:49)
[2020-09-09] MEDS: levothyroxine 25 mcg Tablet PO (08:50)
[2020-09-09] MEDS: levETIRAcetam 500 mg Tablet PO ×2 (08:52→17:28)
[2020-09-09] MEDS: hyDRALAzine 50 mg Tablet PO ×3 (08:52→21:53)
[2020-09-09] MEDS: amoxicillin-clav 500-125 mg Tablet 1 TAB PO ×2 (09:08→21:54)
[2020-09-09] MEDS: linezolid 600 mg Tablet PO ×2 (09:09→21:54)
--- NOTE | 2020-09-09 09:34 | PC.NURSE ---
pt resting in bed at this time watching tv. no needs identified at this time. will continue to monitor.
--- NOTE | 2020-09-09 10:28 | PM.PN ---
Subjective Subjective: Interval history: Patient is currently saturating well on 3 L of oxygen via nasal cannula. She is complaining of right shoulder pain. BUN and creatinine has plateaued. Vitals and labs have been reviewed. Vitals/I&O/Wt Last Vital Signs Temp 97.9 F 09/09/20 07:52 Pulse 74 09/09/20 07:55 Resp 18 09/09/20 07:55 BP 126/85 09/09/20 07:52 Pulse Ox 95 09/09/20 07:55 09/08/20 09/09/20 09/09/20 22:59 06:59 14:59 Intake Total 120 / 120 Output Total 400 / 400 200 / 600 Balance -400 / -280 -200 / -480 120 / 120 Weight last 48 hrs Weight 84.731 kg Weight 87.09 kg Physical Exam Narrative: EXAM NARRATIVE: Narrative EXAM NARRATIVE: General exam is a well confused white female, very hard of hearing, Const COMMON NORMALS: patient oriented x3 HENMT COMMON NORMALS: normocephalic, atraumatic, hearing grossly normal bilaterally and external ears normal HEAD & SCALP: normocephalic and atraumatic EXTERNAL EAR: Yes external ears normal Eye COMMON NORMALS: no scleral icterus GENERAL EYE: appearance normal, both eyes and all related structures Chest COMMONS NORMALS: normal inspection of the chest and normal palpation of entire chest wall CHEST: Yes Symmetrical chest wall rise Resp COMMON NORMALS: normal respiratory effort, No retractions and No use of accessory muscles EFFORT & INSPECTION: Yes symmetric chest movement OTHER: Coarse bilateral breath sounds. Bilateral basal crackle, expiratory wheeze. Cardio COMMON NORMALS: regular rate, regular rhythm, S1 normal heart sound present, S2 normal heart sound present, No gallops present (Cardio), No murmurs present (Cardio), No rub (Cardio) and Peripheral pulses 2+ throughout RATE: regular rate RHYTHM: regular rhythm HEART SOUNDS: S1 normal heart sound present and S2 normal heart sound present PERIPHERAL PULSES: Peripheral pulses 2+ throughout GI COMMON NORMALS: Normal to inspection, nondistended, normoactive bowel sounds present, Soft to palpation, non-tender, No hepatosplenomegaly present and no masses AUSCULTATION: Yes normoactive bowel sounds PALPATION: Yes Soft to palpation and Yes No hepatosplenomegaly present RECTAL EXAM: deferred Extremity NARRATIVE EXTREMITY EXAM: 1+ bilateral pitting edema Neuro COMMON NORMALS: patient oriented x3 Const: COMMON NORMALS: patient oriented x3 HENMT: COMMON NORMALS: normocephalic, atraumatic, hearing grossly normal bilaterally and external ears normal HEAD & SCALP: normocephalic and atraumatic EXTERNAL EAR: Yes external ears normal Eye: COMMON NORMALS: no scleral icterus GENERAL EYE: appearance normal, both eyes and all related structures Chest: COMMONS NORMALS: normal inspection of the chest and normal palpation of entire chest wall CHEST: Yes Symmetrical chest wall rise Resp: COMMON NORMALS: normal respiratory effort, No retractions and No use of accessory muscles EFFORT & INSPECTION: Yes symmetric chest movement OTHER: Coarse bilateral breath sounds. Bilateral basal crackle, expiratory wheeze. Cardio: COMMON NORMALS: regular rate, regular rhythm, S1 normal heart sound present, S2 normal heart sound present, No gallops present (Cardio), No murmurs present (Cardio), No rub (Cardio) and Peripheral pulses 2+ throughout RATE: regular rate RHYTHM: regular rhythm HEART SOUNDS: S1 normal heart sound present and S2 normal heart sound present PERIPHERAL PULSES: Peripheral pulses 2+ throughout GI: COMMON NORMALS: Normal to inspection, nondistended, normoactive bowel sounds present, Soft to palpation, non-tender, No hepatosplenomegaly present and no masses AUSCULTATION: Yes normoactive bowel sounds PALPATION: Yes Soft to palpation and Yes No hepatosplenomegaly present RECTAL EXAM: deferred Extremity: NARRATIVE EXTREMITY EXAM: 1+ bilateral pitting edema Neuro: COMMON NORMALS: patient oriented x3 Urinary Catheter Management^: Yap: Cath Placed During This Visit: yes Reason for Continuing Indwelling Catheter: Acute Urinary Retention or Obstruction Urinary Catheter Date of Insertion: 09/06/20 Data : 09/09/20 04:50 09/09/20 04:50 Micro: Microbiology 09/08/20 16:09 Occult Blood (FIT) - Final Stool A&P Assessment and plan (1) Respiratory failure: Acute hypoxic respiratory failure secondary to Covid pneumonia/with superimposed possible bacterial pneumonia/decompensated heart failure with preserved ejection fraction. Last ABG done on: : pH 7.47, PCO2: 41, PO2 :64, FiO2:35% Continue:Dexamethasone 6 mg po every 24 hours, Remdesivir was held as she lost the IV line. She has received 2 doses so far. Continue Zyvox , Zosyn could not be given, no IV access. She has been started on Augmentin p.o. daily renally dosed Lasix on hold today due to worsening kidney function. We will continue to reevaluate her. Metolazone on hold. Status: Acute Qualifiers: Chronicity: unspecified Respiratory failure complication: hypoxia Qualified Code(s): J96.91 - Respiratory failure, unspecified with hypoxia (2) Pneumonia due to 2019-nCoV: Dexamethasone 6 mg po every 24 hours Remdesivir on hold Albuterol, Atrovent per metered-dose inhaler every 4 to 6 hours as needed Supportive care with oxygen linezolid and Augmentin secondary to concern of superimposed pneumonia. This would also cover any concern of abscess in the axilla. Status: Acute (3) CHF (congestive heart failure): Lasix 60 mg IV every 12 hours currently on hold due to worsening kidney function. Status: Acute Qualifiers: Heart failure type: unspecified Heart failure chronicity: acute on chronic Qualified Code(s): I50.9 - Heart failure, unspecified (4) Anemia: Check stool Hemoccult Monitor CBC. No need for transfusion now. Status: Inactive Qualifiers: Anemia type: unspecified type Qualified Code(s): D64.9 - Anemia, unspecified (5) CKD (chronic kidney disease): Close follow-up of renal function Has acute kidney injury superimposed on chronic kidney disease, Hold any renal toxic medications Status: Acute Qualifiers: Chronic kidney disease stage: stage 4 (severe) Qualified Code(s): N18.4 - Chronic kidney disease, stage 4 (severe) (6) Hyperkalemia: Current serum potassium is 4.9 Will continue to monitor serum potassium Status: Acute (7) Right shoulder pain: 2/2 to chronic superior subluxation of the humeral head consistent with chronic rotator cuff degeneration. No fracture. PT ,Pain control Status: Acute Additional A&P Information Bilateral leg edema. venous duplex: No evidence of DVT Recent abscess under right arm, no evidence of cellulitis currently. History of anemia. Check stool Hemoccult History of hypertension History of seizure disorder, continue Keppra Hypothyroidism, continue levothyroxine Allow natural per nursing facility records Heparin for DVT prophylaxis Check urinalysis Attestations Medical Necessity Statement*: Patient needs to be in hospital for management of Covid pneumonia. 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
[2020-09-09 11:25] LABS: Glucose Point of Care 87 mg/dL (70-110)
[2020-09-09 11:25] LABS: Glucose Point of Care 109 mg/dL (70-110)
--- NOTE | 2020-09-09 11:54 | PC.SOCIAL ---
Pg 2 IMM Was unable to explain to pt's next of kin or person to notify [facility] via phone. No one answered. Pt is a resident of [facility].
[2020-09-09] MEDS: dexamethasone 4 mg Tablet 6 MG PO (11:58)
[2020-09-09 17:12] LABS: Glucose Point of Care 101 mg/dL (70-110)
[2020-09-10] VITALS (31 sets, daily range): BP systolic 109–161; BP diastolic 55–93; PULSE 58–75; RESP 16–28; TEMP 36.5–36.8; O2SAT 93–98
[2020-09-10] MEDS: guaiFENesin-dextromethorphan UDC 10 mL 5 ML PO (01:05)
[2020-09-10] MEDS: HYDROcodone-acetaminophen 5-325 mg Tablet 1 TAB PO ×3 (01:05→14:26)
[2020-09-10 05:43] LABS: Anion Gap 16.4 (5-19); Blood Urea Nitrogen 56 mg/dL (8-23); Calcium 7.9 mg/dL (8.5-10.5); Carbon Dioxide 28 mmol/L (22-29); Chloride 103 mmol/L (98-107); Glucose 114 mg/dL (65-115); Osmolality Calculated 312 mOsm/kg (285-295); Potassium 4.4 mmol/L (3.5-5.1); Sodium 143 mmol/L (136-145)
[2020-09-10 07:07] LABS: Glucose Point of Care 93 mg/dL (70-110)
--- NOTE | 2020-09-10 07:13 | PC.NURSE ---
Patient yelling for help. Nurse entered room. Patient disoriented. Patient states, please give that plate of food to that gentleman in the corner. He has been on the trail and is starving to . There is a fork in that drawer over there. Nurse reoriented patient to time and place. Bed alarm is on, bed in low, locked position. Nurse to continue to monitor.
[2020-09-10] MEDS: hyDRALAzine 50 mg Tablet PO ×2 (08:25→14:26)
[2020-09-10] MEDS: heparin 5,000 unit/mL INJ 1 mL 5000 UNIT SUBCUT ×2 (08:25→21:43)
[2020-09-10] MEDS: dexamethasone 4 mg Tablet 6 MG PO (08:26)
[2020-09-10] MEDS: levETIRAcetam 500 mg Tablet PO (08:27)
[2020-09-10] MEDS: levothyroxine 25 mcg Tablet PO (08:27)
[2020-09-10] MEDS: atorvastatin 40 mg Tablet 20 MG PO (08:27)
[2020-09-10] MEDS: metoprolol tartrate 25 mg Tablet 12.5 MG PO (08:29)
[2020-09-10] MEDS: pantoprazole DR 40 mg Tablet PO (08:30)
[2020-09-10] MEDS: amlodipine 10 mg Tablet PO (08:30)
[2020-09-10] MEDS: amoxicillin-clav 500-125 mg Tablet 1 TAB PO (09:49)
[2020-09-10] MEDS: linezolid 600 mg Tablet PO ×2 (09:49→23:03)
--- NOTE | 2020-09-10 10:19 | PC.NURSE ---
Patient states, I need you to either take me out back or out that way (pointing to door) so I can get things straightened out with [place] and the [employer]. I can hear them behind me. Nurse attempted to reorient patient, unsuccessful. Nurse to administer PO Abx. Patient states, I'm not taking those. Patient educated on risks of not taking medications as prescribed. Patient verbalized understanding but refused to take medicine. Nurse to continue to monitor.
--- NOTE | 2020-09-10 15:36 | PM.PN ---
Subjective Subjective: Interval history: No active complaints overnight. Patient is requiring 3 L of oxygen to maintain saturation greater than 90%. Vitals and labs have been reviewed. Medications: Reviewed: Yes Vitals/I&O/Wt Last Vital Signs Temp 97.7 F 09/10/20 07:19 Pulse 62 09/10/20 12:08 Resp 20 H 09/10/20 12:08 BP 109/66 09/10/20 12:07 Pulse Ox 95 09/10/20 07:55 09/10/20 09/10/20 09/10/20 06:59 14:59 22:59 Intake Total 75 / 655 240 / 240 Output Total 200 / 600 Balance -125 / 55 240 / 240 Weight last 48 hrs Weight 83.915 kg Weight 84.731 kg Physical Exam Const: COMMON NORMALS: patient oriented x3 HENMT: COMMON NORMALS: normocephalic, atraumatic, hearing grossly normal bilaterally and external ears normal HEAD & SCALP: normocephalic and atraumatic EXTERNAL EAR: Yes external ears normal Eye: COMMON NORMALS: no scleral icterus GENERAL EYE: appearance normal, both eyes and all related structures Chest: COMMONS NORMALS: normal inspection of the chest and normal palpation of entire chest wall CHEST: Yes Symmetrical chest wall rise Resp: COMMON NORMALS: normal respiratory effort, No retractions, No use of accessory muscles and clear to auscultation bilaterally EFFORT & INSPECTION: Yes symmetric chest movement AUSCULTATION: clear to auscultation bilaterally OTHER: Coarse bilateral breath sounds. Bilateral basal crackle, expiratory wheeze. Cardio: COMMON NORMALS: regular rate, regular rhythm, S1 normal heart sound present, S2 normal heart sound present, No gallops present (Cardio), No murmurs present (Cardio), No rub (Cardio) and Peripheral pulses 2+ throughout RATE: regular rate RHYTHM: regular rhythm HEART SOUNDS: S1 normal heart sound present and S2 normal heart sound present PERIPHERAL PULSES: Peripheral pulses 2+ throughout GI: COMMON NORMALS: Normal to inspection, nondistended, normoactive bowel sounds present, Soft to palpation, non-tender, No hepatosplenomegaly present and no masses AUSCULTATION: Yes normoactive bowel sounds PALPATION: Yes Soft to palpation and Yes No hepatosplenomegaly present RECTAL EXAM: deferred Extremity: COMMON NORMALS: no clubbing, cyanosis or edema and no pedal edema NARRATIVE EXTREMITY EXAM: 1+ bilateral pitting edema Neuro: COMMON NORMALS: patient oriented x3 Urinary Catheter Management^: Yap: Cath Placed During This Visit: yes Reason for Continuing Indwelling Catheter: Accurate Measurement of Urinary Output in Critically Ill Patients Urinary Catheter Date of Insertion: 09/06/20 Data : 09/09/20 04:50 09/10/20 04:45 A&P Assessment and plan (1) Respiratory failure: Acute hypoxic respiratory failure secondary to Covid pneumonia/with superimposed possible bacterial pneumonia/decompensated heart failure with preserved ejection fraction. Last ABG done on: : pH 7.47, PCO2: 41, PO2 :64, FiO2:35% Continue:Dexamethasone 6 mg po every 24 hours, Remdesivir was held as she lost the IV line. She has received 2 doses so far. Continue Zyvox ( monitor PC ) , Zosyn could not be given, no IV access. She has been started on Augmentin p.o. daily renally dosed Lasix and metolazone on hold today due to worsening kidney function. We will continue to reevaluate her. Status: Acute Qualifiers: Chronicity: unspecified Respiratory failure complication: hypoxia Qualified Code(s): J96.91 - Respiratory failure, unspecified with hypoxia (2) Pneumonia due to 2019-nCoV: Dexamethasone 6 mg po every 24 hours Remdesivir on hold Albuterol, Atrovent per metered-dose inhaler every 4 to 6 hours as needed Supportive care with oxygen linezolid and Augmentin secondary to concern of superimposed pneumonia. This would also cover any concern of abscess in the axilla. Status: Acute (3) CHF (congestive heart failure): Lasix 60 mg IV every 12 hours currently on hold due to worsening kidney function. Status: Acute Qualifiers: Heart failure chronicity: acute on chronic Heart failure type: unspecified Qualified Code(s): I50.9 - Heart failure, unspecified (4) Anemia: Stool Hemoccult:Negative Monitor CBC. No need for transfusion now. Status: Inactive Qualifiers: Anemia type: unspecified type Qualified Code(s): D64.9 - Anemia, unspecified (5) CKD (chronic kidney disease): Close follow-up of renal function Has acute kidney injury superimposed on chronic kidney disease, Hold any renal toxic medications Continue to hold Lasix. Status: Acute Qualifiers: Chronic kidney disease stage: stage 4 (severe) Qualified Code(s): N18.4 - Chronic kidney disease, stage 4 (severe) (6) Hyperkalemia: Resolved Current serum potassium is 4.9 Will continue to monitor serum potassium Status: Acute (7) Right shoulder pain: 2/2 to chronic superior subluxation of the humeral head consistent with chronic rotator cuff degeneration. No fracture. PT ,Pain control Status: Acute Additional A&P Information Bilateral leg edema. venous duplex: No evidence of DVT Recent abscess under right arm, no evidence of cellulitis currently. History of anemia. Stool Hemoccult:Negative History of hypertension: Continue hydralazine 25 mg q8 h daily,metoprolol T: 12.5 MG Q12 H DAILY History of seizure disorder, continue Keppra Hypothyroidism, continue levothyroxine Allow natural per nursing facility records Heparin for DVT prophylaxis Check urinalysis Attestations Medical Necessity Statement*: Patient needs to be in hospital for management of Covid pneumonia. Coding Level of Care Code Acute Credit Risk Specialist for [facility] Fwd Exam Comprehensive Diagnoses Respiratory failure J96.91 Chronicity: unspecified Respiratory failure complication: hypoxia Pneumonia due to 2019-nCoV U07.1; J12.89 CHF (congestive heart failure) I50.9 Heart failure chronicity: acute on chronic Heart failure type: unspecified Anemia D64.9 Anemia type: unspecified type CKD (chronic kidney disease) N18.4 Chronic kidney disease stage: stage 4 (severe) Hyperkalemia E87.5 Right shoulder pain M25.511
--- NOTE | 2020-09-10 15:50 | PC.NURSE ---
Patient resting with eyes closed at this time. Patient continues to pull at telemetry and SPO2 sensor. Dr. Mccollum notified. Verbal order to leave monitoring devices off patient, RBVO. Nurse to continue to monitor.
[2020-09-10 17:00] LABS: Glucose Point of Care 109 mg/dL (70-110)
--- NOTE | 2020-09-10 18:32 | PC.NURSE ---
Patient only had 175 ml urine output. Catheter readjusted, no further urine output returned. Patient refuses to eat or drink. Patient had a BM, smear. Carmen care performed. Linens changed. Dr. Mccollum notified of decreased urine output and lack of oral intake at 1745. Physician gave nurse order to start IV line ultrasound guided. RBTO. Physician gave telephone order to restart remdesivir, contact pharmacy for scheduling, RBTO. UD guided IV placed by ICU nurse, patient tolerated well. Physician notified. Physician to make medication adjustments.
[2020-09-10 19:39] LABS: Glucose Point of Care 246 mg/dL (70-110)
--- NOTE | 2020-09-10 21:16 | PC.NURSE ---
Midline placed LEFT Basilic vein, see insertion note for further details. Ready for use. Primary nurse notified.
[2020-09-10] MEDS: piperacillin-tazobactam 3.375 GM in sodium chloride 0.9% (plus) 50 ML IV (21:42)
[2020-09-10] MEDS: hyDRALAzine 25 mg Tablet PO (21:43)
[2020-09-10] MEDS: ziprasidone 20 mg/mL SDV IM (23:44)
[2020-09-11] VITALS (21 sets, daily range): BP systolic 106–172; BP diastolic 51–73; PULSE 53–85; RESP 14–35; TEMP 36.2–36.6; O2SAT 92–99
--- NOTE | 2020-09-11 00:35 | PC.NURSE ---
PT has been confused since shift change, alert only to self and noncompliant with treatment. PT repeatedly removes telemetry, O2 monitor, and BP cuff. PT found trying to pull on larson. Nurse tried to redirect pt and and pt yelled at nurse, I'll dot your eye in a minute. pt pulled PICC line from left arm. Nurse applied dressing to arm and notified Hospitalist Dr. Prasad. Dr. Prasad ordered Geodon 20 mg IM. Geodon administered to right deltoid. Pt resting in bed, call light within reach, bed alarm on, Nurse will continue to monitor.
[2020-09-11 05:32] LABS: Hemoglobin 8.8 g/dL (11.5-15.3); Lymphocytes # 0.9 10^3/uL (0.8-4.8); Lymphocytes % 13.9 %; Mean Corpuscular HGB Conc 30.3 g/dL (30.0-36.0); Mean Corpuscular Hemoglobin 30.6 pg (28.0-34.0); Mean Corpuscular Volume 100.7 fL (81-99); Mean Platelet Volume 11.5 fL (7.4-10.4); Monocytes # 0.3 10^3/uL (0.2-0.9); Monocytes % 5.2 %; Neutrophils # 4.89 10^3/uL (1.8-7.7); Neutrophils % 80.2 %; Nucleated Red Blood Cells % 0 %; Platelet Count 273 10^3/cmm (130-400); Red Blood Count 2.88 10^6/uL (4.1-5.3); Red Cell Distribution Width 13.5 % (12.1-15.1); White Blood Count 6.1 10^3/uL (4.0-10.0)
[2020-09-11 07:44] LABS: Glucose Point of Care 68 mg/dL (70-110)
[2020-09-11 08:56] LABS: Alanine Aminotransferase 20 U/L (0-33); Albumin Level 2.5 g/dL (3.5-5.2); Alkaline Phosphatase 85 IU/L (35-105); Anion Gap 19.2 (5-19); Aspartate Amino Transferase 31 U/L (0-32); Blood Urea Nitrogen 59 mg/dL (8-23); Calcium 7.5 mg/dL (8.5-10.5); Carbon Dioxide 26 mmol/L (22-29); Chloride 103 mmol/L (98-107); Globulin 2.2 g/dL (1.3-4.6); Glucose 89 mg/dL (65-115); Osmolality Calculated 314 mOsm/kg (285-295); Potassium 4.2 mmol/L (3.5-5.1); Sodium 144 mmol/L (136-145); Total Bilirubin 0.2 mg/dL (0.15-1.2); Total Protein 4.7 g/dL (6.6-8.7)
[2020-09-11] MEDS: piperacillin-tazobactam 3.375 GM in sodium chloride 0.9% (plus) 50 ML IV (10:02)
[2020-09-11] MEDS: FUROsemide 10 mg/mL SDV 4mL 20 MG IVP (10:03)
[2020-09-11] MEDS: levETIRAcetam 500 mg Tablet PO (10:07)
[2020-09-11] MEDS: heparin 5,000 unit/mL INJ 1 mL 5000 UNIT SUBCUT (10:07)
[2020-09-11] MEDS: hyDRALAzine 25 mg Tablet PO (10:08)
[2020-09-11] MEDS: linezolid 600 mg Tablet PO (10:08)
[2020-09-11] MEDS: pantoprazole DR 40 mg Tablet PO (10:09)
[2020-09-11] MEDS: levothyroxine 25 mcg Tablet PO (10:09)
[2020-09-11] MEDS: atorvastatin 40 mg Tablet 20 MG PO (10:09)
[2020-09-11] MEDS: dexamethasone 4 mg Tablet 6 MG PO (10:09)
[2020-09-11] MEDS: amlodipine 10 mg Tablet PO (10:10)
[2020-09-11] MEDS: metoprolol tartrate 25 mg Tablet 12.5 MG PO (10:10)
[2020-09-11] MEDS: acetaminophen 325 mg Tablet 650 MG PO (10:11)
[2020-09-11] MEDS: sodium chloride 0.9% 1,000 ML 75 ML IV (10:14)
[2020-09-11 11:19] LABS: Glucose Point of Care 120 mg/dL (70-110)
--- NOTE | 2020-09-11 12:06 | DCPLANNER ---
Phoned N.Mckay or as she is listed as [facility] [phone]. Explained the IM however didn't leave pt information on voice mail. Asked that she call us if she has any questions at all about the IM.
--- NOTE | 2020-09-11 13:44 | PM.DCS ---
Discharge Providers Date of Admission: 09/06/20 17:26 Date of Discharge: September 11, 2020 Attending Provider at Admission: Paul Otto MD Attending Provider at Discharge: Benny Mccollum MD Primary Care Provider: Jimenez Lewis DO Diagnoses at Discharge Discharge Diagnosis (1) Respiratory failure: Status: Resolved Qualifiers: Chronicity: unspecified Respiratory failure complication: hypoxia Qualified Code(s): J96.91 - Respiratory failure, unspecified with hypoxia (2) Pneumonia due to 2019-nCoV: Status: Resolved (3) CHF (congestive heart failure): Status: Chronic Qualifiers: Heart failure chronicity: acute on chronic Heart failure type: unspecified Qualified Code(s): I50.9 - Heart failure, unspecified (4) Anemia: Status: Inactive Qualifiers: Anemia type: unspecified type Qualified Code(s): D64.9 - Anemia, unspecified (5) CKD (chronic kidney disease): Status: Chronic Qualifiers: Chronic kidney disease stage: stage 4 (severe) Qualified Code(s): N18.4 - Chronic kidney disease, stage 4 (severe) (6) Right shoulder pain: Status: Chronic (7) Seizure: Status: Chronic Reason for Visit Reason for Visit: DIFF BREATHING Hospital Course Hospital Course: 84-year-old female with past medical history of, hypertension, heart failure with the preserved ejection (05/2020, E.F : 65%) ,HTN, Seizure disorder h/o PRES,CKD, resident of [facility] [place] she was diagnosed with Covid on the was admitted with increasing shortness of breath and oxygen requirement. Post admission she was managed for Covid pneumonia, she was kept on dexamethasone and remdesivir (she received total 3 doses of remdesivir) she was also covered with broad spectrum antibiotic for possible superimposed bacterial/atypical PNA. Currently she has MINNIE on worsening CKD. We have held her Lasix and metolazone.There was issue with IV hydration during this hospital stay as she pulled her PICC line out, multiple attempts were made, with peripheral access, but see being hard stick it was difficult to have good IV access. We encouraged her to do p.o. intake with which she was not very compliant. Right now her creatinine is heading downward. We have been able to hydrate her.The current plan is to continue to hold diuretic for now, and continue to monitor BMP. Recent history of right arm abscess without evidence of cellulitis. The broad-spectrum antibiotics she was on has covered her well. She is being discharged on 14 days levofloxacin course.She continued to be on keppra for her seizure disorder.She has anemia of inflammatory disease ,FOBT was negative and H/H was stable.There was no need for blood transfusion.Patient has chronic rt shoulder pain,xray rt shoulder showed chronic superior subluxation of the humeral head consistent with chronic rotator cuff degeneration. No fracture.She was managed conservatively. Patient is currently saturating well on 3 l l oxygen via [place]Currently she is being discharged in stable condition to assisted.She is DNR/DNI. Physical Exam Narrative: EXAM NARRATIVE: General white female, very hard of hearing, HENMT: COMMON NORMALS: normocephalic, atraumatic, hearing grossly normal bilaterally and external ears normal HEAD & SCALP: normocephalic and atraumatic EXTERNAL EAR: Yes external ears normal Eye: COMMON NORMALS: no scleral icterus GENERAL EYE: appearance normal, both eyes and all related structures Chest: COMMONS NORMALS: normal inspection of the chest and normal palpation of entire chest wall CHEST: Yes Symmetrical chest wall rise Resp: COMMON NORMALS: normal respiratory effort, No retractions and No use of accessory muscles EFFORT & INSPECTION: Yes symmetric chest movement OTHER: Occasional expiratory wheeze, no crackle, no rhonchi, diminished air entry at bases. Cardio: COMMON NORMALS: regular rate, regular rhythm, S1 normal heart sound present, S2 normal heart sound present, No gallops present (Cardio), No murmurs present (Cardio), No rub (Cardio) and Peripheral pulses 2+ throughout RATE: regular rate RHYTHM: regular rhythm HEART SOUNDS: S1 normal heart sound present and S2 normal heart sound present PERIPHERAL PULSES: Peripheral pulses 2+ throughout GI: COMMON NORMALS: Normal to inspection, nondistended, normoactive bowel sounds present, Soft to palpation, non-tender, No hepatosplenomegaly present and no masses AUSCULTATION: Yes normoactive bowel sounds PALPATION: Yes Soft to palpation and Yes No hepatosplenomegaly present RECTAL EXAM: deferred Extremity: COMMON NORMALS: no clubbing, cyanosis or edema and no pedal edema Urinary Catheter Management^: Yap: Cath Placed During This Visit: yes Reason for Continuing Indwelling Catheter: Accurate Measurement of Urinary Output in Critically Ill Patients Urinary Catheter Date of Insertion: 09/06/20 Discharge Data Data Completed and Pending: Completed Studies During Hospitalization Category Date Time Status XR chest 1V damaris ble [id number] Stat Exams 09/06/20 15:26 Completed XR shoulder RT 1V [id number] Routine Exams 09/08/20 08:15 [place] [id number] Routin e Ultrasound 09/07/20 07:00 Completed Pending at discharge Category Date Time Status Blood Culture Sta t Lab 09/06/20 16:00 Results CBC Auto Diff [Co mplete Blood Count w/Auto] AM LABS Lab 09/12/20 04:00 Ordered CMP [Comprehensiv e Metabolic Panel] AM LABS Lab 09/12/20 04:00 [facility] 09[facility]06/20 20:48 Uncollected Labs from last 24 hours 09/11/20 09/11/20 09/11/20 11:12 08:28 07:24 WBC RBC Hgb Hct MCV MCH MCHC RDW Plt Count MPV Neut % (Auto) Lymph % (Auto) [place] % (Auto) Eos % (Auto) Baso % (Auto) Neut # (Auto) Lymph # (Auto) [place] # (Auto) Eos # (Auto) Baso # (Auto) Nucleated RBC % (a uto) Nucleated RBCs # Sodium 144 Potassium 4.2 Chloride 103 Carbon Dioxide 26 Anion Gap 19.2 H BUN 59 H Creatinine 4.0 H GFR Calculation Not Reportable Glucose 89 POC Glucose 120 68 Calculated Osmolal ity 314 H Calcium 7.5 L Total Bilirubin 0.2 AST 31 ALT 20 Alkaline Phosphata se 85 Total Protein 4.7 L Albumin 2.5 L Globulin 2.2 09/11/20 09/11/20 09/10/20 04:30 04:30 19:23 WBC 6.1 RBC 2.88 L Hgb 8.8 L Hct 29.0 L MCV 100.7 H MCH 30.6 MCHC 30.3 RDW 13.5 Plt Count 273 MPV 11.5 H Neut % (Auto) 80.2 Lymph % (Auto) 13.9 Tom[place]kins % (Auto) 5.2 Eos % (Auto) 0.0 Baso % (Auto) 0.0 Neut # (Auto) 4.89 Lymph # (Auto) 0.9 [place]kins # (Auto) 0.3 Eos # (Auto) 0.0 Baso # (Auto) 0.0 Nucleated RBC % (a uto) 0 Nucleated RBCs # 0.0 Sodium Cancelled Potassium Cancelled Chloride Cancelled Carbon Dioxide Cancelled Anion Gap Cancelled BUN Cancelled Creatinine Cancelled GFR Calculation Cancelled Glucose Cancelled POC Glucose 246 Calculated Osmolal ity Cancelled Calcium Cancelled Total Bilirubin Cancelled AST Cancelled ALT Cancelled Alkaline Phosphata se Cancelled Total Protein Cancelled Albumin Cancelled Globulin Cancelled 09/10/20 16:31 WBC RBC Hgb Hct MCV MCH MCHC RDW Plt Count MPV Neut % (Auto) Lymph % (Auto) [place] % (Auto) Eos % (Auto) Baso % (Auto) Neut # (Auto) Lymph # (Auto) [place] # (Auto) Eos # (Auto) Baso # (Auto) Nucleated RBC % (a uto) Nucleated RBCs # Sodium Potassium Chloride Carbon Dioxide Anion Gap BUN Creatinine GFR Calculation Glucose POC Glucose 109 Calculated Osmolal ity Calcium Total Bilirubin AST ALT Alkaline Phosphata se Total Protein Albumin Globulin Vitals: Last Vital Signs Temp 97.7 F 09/11/20 12:00 Pulse 61 09/11/20 12:00 Resp 26 H 09/11/20 12:00 BP 134/54 09/11/20 12:00 Pulse Ox 97 09/11/20 12:00 Discharge Plan Discharge Patient Disposition: [facility] w Plan Readm Condition: Stable Prescriptions: New Decadron 6 mg tablet 6 mg PO Q24H Qty: 14 RF: 0 levofloxacin 500 mg tablet 500 mg PO Q48H 14 Days Qty: 7 RF: 0 Continued albuterol sulfate 90 mcg/actuation aerosol powdr breath activated 2 inh INHALATION Q2H PRN (Reason: Shortness Of Breath) RF: 0 potassium chloride 20 mEq tablet extended release 40 meq PO DAILY RF: 0 levothyroxine 25 mcg capsule 25 mcg PO DAILY RF: 0 loperamide 2 mg Capsule 2 mg PO Q2H PRN (Reason: Diarrhea) RF: 0 magnesium hydroxide [Milk of Magnesia] 400 mg/5 mL Suspension 30 ml PO DAILY PRN (Reason: Constipation) RF: 0 acetaminophen [Tylenol] 325 mg Capsule 650 mg PO QID PRN (Reason: Pain) RF: 0 Pro-Stat AWC 17-100 gram-kcal/30 mL Liquid 15 ea PO BID RF: 0 budesonide 0.5 mg/2 mL suspension for nebulization 0.5 mg inhalation BID RF: 0 lovastatin 20 mg tablet 20 mg PO DAILY RF: 0 cholecalciferol (vitamin D3) 1,250 mcg (50,000 unit) capsule 1,250 mcg PO Q7D RF: 0 levetiracetam 500 mg Tablet 500 mg PO BID Qty: 60 RF: 0 pantoprazole 40 mg Tablet,Delayed Release (Dr/Ec) 40 mg PO DAILY Qty: 30 RF: 0 hydralazine 50 mg Tablet 50 mg PO TID Qty: 90 RF: 0 ipratropium-albuterol 0.5 mg-3 mg(2.5 mg base)/3 mL solution for nebulization 3 ml INHALATION TID Qty: 180 RF: 0 budesonide 32 mcg/actuation [place],Non-Aerosol 2 spray INTRANASAL BID RF: 0 hydrocodone-acetaminophen 5-325 mg Tablet 1 tab PO Q4H PRN (Reason: Pain) RF: 0 Senna-S 8.6-50 mg Tablet 1 tab-cap PO BID PRN (Reason: Constipation) RF: 0 Bactrim DS 800-160 mg Tablet 1 tab PO BID RF: 0 Refresh Tears 0.5 % Drops 2 drp OPHTHALMIC (EYE) BID RF: 0 Debrox 6.5 % Drops 5 drp OTIC (EAR) DAILY RF: 0 Miralax 17 gram/dose Powder 17 g PO DAILY PRN (Reason: Constipation) RF: 0 metoprolol tartrate 25 mg Tablet 12.5 mg PO BID RF: 0 diclofenac sodium 1 % Gel 2 g TOPICAL TID PRN (Reason: Pain) RF: 0 Combivent Respimat 20-100 mcg/actuation Mist 1 puff INHALATION TID RF: 0 Held Lasix 40 mg tablet 40 mg PO BID RF: 0 Hold Instructions: Resume on 09/14/20. metolazone 2.5 mg Tablet 2.5 mg PO DAILY RF: 0 Hold Instructions: Resume on 09/14/20. Discharge Orders: Discharge Order (Routine); Ordered 09/11/20 Ordered By: Benny Mccollum Referrals: [facility] [Outside] - 1-3 days (Follow up with attending at facility. ) Discharge Diet: Cardiac and Low Salt Discharge Activity: Increase activity as tolerated Discharge Date/Time: 09/11/20 16:00 Discharge Attestations Time Spent in Discharge Care*: greater than 30 min Specific Discharge Activities: Specific discharge activities: educating patient, educating and/or supporting family/caregiver, discussing with pcp/other providers, discussing with renal case manager/social workers/dc planners, documenting/other paperwork and evaluating patient/reviewing data Status at Discharge: Cognitive status at discharge: cognitively intact, Behavioral status at discharge: cooperative, Overall status at discharge: patient is progressing back to baseline Quality Metrics Clinical Quality Measures During this hospital stay, did patient experience: None Coding Level of Care Code 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
== END 2020-09-11 16:00 | disposition skilled nursing facility (03) | DRG 177 ==
LOC: ER 17:13 → ICU 17:58
PROVIDERS: Emergency Medicine; Admitting Provider Internal Medicine; PCP Electrodiagnostic Medicine; Visit Provider Internal Medicine
DX: U07.1 COVID-19 (principal); J12.89 Other viral pneumonia; I50.33 Acute on chronic diastolic (congestive) heart failure; J96.01 Acute respiratory failure with hypoxia; I13.0 Hypertensive heart and chronic kidney disease with heart failure and stage 1 through stage 4 chronic kidney disease, or unspecified chronic kidney disease; N18.4 Chronic kidney disease, stage 4 (severe); N17.9 Acute kidney failure, unspecified; H91.90 Unspecified hearing loss, unspecified ear; E87.5 Hyperkalemia; Z87.01 Personal history of pneumonia (recurrent); D63.1 Anemia in chronic kidney disease; E78.5 Hyperlipidemia, unspecified; R29.6 Repeated falls; G40.909 Epilepsy, unspecified, not intractable, without status epilepticus; Z96.641 Presence of right artificial hip joint; E03.9 Hypothyroidism, unspecified; Z79.891 Long term (current) use of opiate analgesic; Z79.51 Long term (current) use of inhaled steroids; M19.011 Primary osteoarthritis, right shoulder; Z66 Do not resuscitate
CPT/HCPCS: 12345; 36415; 36416; 36569; 36600; 51702; 71045; 73020; 80048; 80051; 80053; 81001; 82274; 82728; 82803; 82810; 82962; 83605; 83735; 83880; 83986; 85025; 85378; 85384; 85610; 86140; 87040; 87641; 93970; 94640; 94664; 96372; 96375; 99283; J0360; J1100; J1644; J1815; J1940; J2020; J2543; J3486; J3535; J7030; J7040; J8540; P9047